=== PATIENT | female | born 1990 | race African-American/Black ===

== ENCOUNTER → 2017-04-22 | Day surgery (SDC) | payer OTHER ==
[~2017-04-22] VITALS: Ht 162.6 cm; Wt 81.6 kg
[~2017-04-22] MED LIST: MOTRIN800 MG PO; PREDNISONE 20MG20 MG PO
--- NOTE | 2017-04-22 12:36 | History & Physical Pre-Op ---
General Information and HPI History of Present Illness: [id number] with right ovarian cyst causing pain is requesting excision and removal of her Nexplanon. Allergies/Medications Allergies: Coded Allergies: NO KNOWN ALLERGIES (10/06/14) Home Med list Ibuprofen (Motrin) 800 MG TAB 1 TAB PO TID PRN PAIN Prednisone 20 MG TABLET 1 TAB PO DAILY PHARYNGITIS DAY 1: 2 TABS PO QD DAY 2-4: 1 TAB PO QD Past History Surgical History Pertinent Surgical History: Review of Systems Review of Systems Constitutional: Reports: no symptoms. EENTM: Reports: no symptoms. Cardiovascular: Reports: no symptoms. Respiratory: Reports: no symptoms. GI: Reports: no symptoms. Genitourinary: Reports: see HPI. Musculoskeletal: Reports: no symptoms. Skin: Reports: no symptoms. Neurological/Psychological: Reports: no symptoms. Hematologic/Endocrine: Reports: no symptoms. Immunologic/Allergic: Reports: no symptoms. All Other Systems: Reviewed and Negative Exam & Diagnostic Data Last 24 Hrs of Vital Signs/I&O vss Physical Exam: HEENT: NCAT Chest: CTA CV: nl s1s2 Abd: soft, NTND Pelvic: deferred Ext: no c/c/e Assessment/Plan Assessment/Plan: R ovarian cyst laparoscopic excision of Nexplanon removal As Ranked By This Provider Problem List: 1. Ovarian cyst
--- NOTE | 2017-04-23 11:06 | Operative Report ---
Operative/Inv Procedure Report Surgery Date: 04/22/17 Name of Procedure: Laparoscopic excision of bilateral ovarian cysts; removal of Nexplanon contraceptive device Pre-Operative Diagnosis: Right ovarian cyst; contraceptive management Post-Operative Diagnosis: Bilateral ovarian cysts, endometriosis Estimated Blood Loss: feliberto Surgeon/Ski Top Trimmer: DAVID BLANCAS MD Anesthesia: general endotracheal tube Operative/Procedure Note Note: The patient was brought to the operating room and placed on the OR table in the dorsal supine position. She was given adequate general anesthesia and successfully intubated. She was repositioned into modified dorsal lithotomy and prepped and draped in usual sterile fashion. A speculum was inserted into the vagina and a single-tooth tenaculum was attached to the anterior lip of the cervix. The cervix was then introduced with an acorn cannula. This was attached to the tenaculum and the speculum was removed. A Barbour catheter was then placed draining clear yellow yellow urine. The surgeon's gloves and attention was paid to the abdomen. An infraumbilical skin incision was made with the scalpel and the Veress needle was placed into the abdominal cavity. CO2 gas was insufflated into the abdominal cavity under high flow and low pressure until an adequate pneumoperitoneum had been achieved. The Veress needle was removed and replaced with a 5 mm disposable trocar. Through the trocar sleeve the camera was placed revealing good anatomic location and hemostasis. The patient was then placed into Trendelenburg position. Examination of the pelvic cavity revealed a large right ovary benign-appearing approximately 8 cm in size. A stab incision was created in the suprapubic area and a 10 mm disposable trocar was inserted under direct visualization. Through this trocar site a blunt probe was placed and the pelvic organs were noted. A left lower quadrant incision was made and a 5 mm disposable trocar was inserted under direct visualization. The left ovary was stabbed with a needle aspirator and approximately 150 mL of straw-colored fluid were removed and sent to cytology. Using bipolar cautery the cyst wall was opened and a large portion of the cyst was removed and sent to pathology. Attention was then paid to the right ovary which appeared to have a 6 cm cyst. Essentially the same procedure is repeated on this side with good hemostasis. At the end of the procedure the pelvis was copiously irrigated several times and hemostasis was noted. The CO2 gas was allowed to escape the abdomen and the instruments were removed. The fascia was closed in the suprapubic area with 0 Polysorb suture material and the skin was closed on all incisions using 4-0 Biosyn. Attention was then paid to the upper left extremity. The Nexplanon Was noted to be intact and the arm was prepped and draped in usual sterile fashion. A stab incision was created through the old scar and using palpation and sharp dissection with the scalpel and the Nexplanon sindi was removed intact and sent to pathology. An interrupted suture of 4-0 Biosyn was placed in the wound and this was dressed. The vaginal instruments were then removed and the patient was awakened and sent to recovery in good condition. All needle, sponge, and instrument counts were correct at the end of the procedure 2.
== END ==
LOC: STS 04-20 05:03
DX: N83.292 Other ovarian cyst, left side (principal); N83.291 Other ovarian cyst, right side; N80.9 Endometriosis, unspecified; Z30.46 Encounter for surveillance of implantable subdermal contraceptive
CPT/HCPCS: 81025; 88305; J0131; J1100; J2250; J2405